=== PATIENT | female | born 1950 | race Caucasian/White ===

== ENCOUNTER 2022-09-03 10:31 | Inpatient (IN) | payer OTHER, MEDICAID ==
[~2022-09-03] VITALS: Ht 160 cm; Wt 112.5 kg
[2022-09-03 10:31] VITALS: BP_SYST 138
[2022-09-03 11:37] LABS: BASOPHILS # (AUTO) 0.1 K/uL (0.0-0.2); BASOPHILS % (AUTO) 0.6 % (0.0-2.0); EOSINOPHILS # (AUTO) 0.3 K/uL (0.0-0.4); EOSINOPHILS % (AUTO) 1.8 % (0.0-4.0); HEMATOCRIT 40.4 % (36-48); HEMOGLOBIN 13.6 g/dL (12.0-16.0); LYMPHOCYTES # (AUTO) 2.6 K/uL (1.0-5.5); LYMPHOCYTES % (AUTO) 15.2 % (20.5-51.5); MEAN CORPUSCULAR HEMOGLOBIN 30 pg (27-31); MEAN CORPUSCULAR HGB CONC 34 % (32-36); MEAN CORPUSCULAR VOLUME 89 fL (79.0-98.0); MONOCYTES # (AUTO) 0.9 K/uL (0.0-1.0); MONOCYTES % (AUTO) 5.5 % (1.7-9.3); NEUTROPHILS % (AUTO) 76.9 % (40.0-70.0); PLATELET COUNT (AUTO) 344 K/uL (130-430); RED BLOOD CELL COUNT(AUTO) 4.54 MIL/uL (4.2-6.2); RED CELL DISTRIBUTION WIDTH 12.8 % (9.0-15.0); WHITE BLOOD COUNT (AUTO) 16.9 K/uL (4.8-10.8)
[2022-09-03 11:38] LABS: ANION GAP 6 (5-15); CALCIUM 9.2 mg/dL (8.4-11.0); CHLORIDE 102 mmol/L (98-107); CREATININE 1.25 mg/dL (0.55-1.30); GLUCOSE 172 mg/dL (70-99); POTASSIUM 4.2 mmol/L (3.5-5.1); UREA NITROGEN, BLOOD 23 mg/dL (8-21)
[2022-09-03 11:44] LABS: ALANINE AMINOTRANSFERASE 32 U/L (12-78); ALBUMIN 3.4 g/dL (3.4-4.8); ASPARTATE AMINOTRANSFERASE 26 U/L (10-37); TOTAL BILIRUBIN 0.4 mg/dL (0.0-1.0)
[2022-09-03 13:42] LABS: BILIRUBIN,URINE NEGATIVE (NEGATIVE); BLOOD, URINE NEGATIVE (NEGATIVE); CLARITY/URINE CLEAR (CLEAR); COLOR,URINE YELLOW (YELLOW); GLUCOSE,URINE NEGATIVE (NEGATIVE); KETONES,URINE TRACE (NEGATIVE); LEUKOCYTE ESTERASE ,URINE TRACE (NEGATIVE); NITRITE, URINE NEGATIVE (NEGATIVE); PH,URINE 5.5 (5.0-8.0); PROTEIN URINE NEGATIVE (NEGATIVE); UROBILINOGEN,URINE 0.2 (0.2-1.0)
[2022-09-03 14:07] LABS: BACTERIA,URINE RARE /HPF (None Seen); MUCUS,URINE 1+ /LPF (None Seen); RBC,URINE 0-3 /HPF (0-3); WBC,URINE 0-3 /HPF (0-3)
[2022-09-03] MEDS ORDERED: NACL 0.9% 1,000 ML IV ONE (14:45)
[2022-09-03] MEDS ORDERED: CEFEPIME 1 GM in D5W 50 ML IV ONE (14:45)
[2022-09-03] MEDS ORDERED: NITROGLYCERIN 0.4 MG TAB.SUBL SL PRN (15:15)
[2022-09-03 16:40] VITALS: BP_SYST 157
[2022-09-03 18:23] VITALS: BP_SYST 139
[2022-09-03] MEDS ORDERED: ACETAMINOPHEN 325 MG TABLET PO PRN (19:45)
[2022-09-03 20:00] VITALS: BP_SYST 135
[2022-09-03] MEDS: ENOXAPARIN SODIUM 40 MG/0.4 ML SYRINGE SUBCUT SCH (21:13)
[2022-09-03] MEDS: CEFEPIME 1 GM in D5W 50 ML IV SCH (21:14)
[2022-09-03] MEDS ORDERED: TRAZ150T77 PO (23:21)
[2022-09-03] MEDS ORDERED: LOSA25TA3 PO (23:21)
[2022-09-03] MEDS ORDERED: QUET50TA PO (23:29)
[2022-09-03] MEDS ORDERED: LAM25 PO (23:29)
[2022-09-03] MEDS ORDERED: SPIR50TA PO (23:29)
[2022-09-03] MEDS ORDERED: LIP40 PO (23:29)
[2022-09-03] MEDS ORDERED: PRO20 PO (23:29)
[2022-09-03 23:45] VITALS: BP_SYST 102
[2022-09-03] MEDS: LOSARTAN POTASSIUM 25 MG TABLET PO SCH (23:45)
[2022-09-04 06:00] VITALS: BP_SYST 100
[2022-09-04 07:19] LABS: BASOPHILS # (AUTO) 0.1 K/uL (0.0-0.2); BASOPHILS % (AUTO) 0.6 % (0.0-2.0); EOSINOPHILS # (AUTO) 0.4 K/uL (0.0-0.4); EOSINOPHILS % (AUTO) 3.4 % (0.0-4.0); HEMATOCRIT 39.8 % (36-48); HEMOGLOBIN 13.6 g/dL (12.0-16.0); LYMPHOCYTES # (AUTO) 2.1 K/uL (1.0-5.5); LYMPHOCYTES % (AUTO) 17.8 % (20.5-51.5); MEAN CORPUSCULAR HEMOGLOBIN 30 pg (27-31); MEAN CORPUSCULAR HGB CONC 34 % (32-36); MEAN CORPUSCULAR VOLUME 88 fL (79.0-98.0); MONOCYTES # (AUTO) 0.6 K/uL (0.0-1.0); MONOCYTES % (AUTO) 4.6 % (1.7-9.3); NEUTROPHILS # (AUTO) 8.8 K/uL (1.8-7.7); NEUTROPHILS % (AUTO) 73.6 % (40.0-70.0); PLATELET COUNT (AUTO) 285 K/uL (130-430); RED BLOOD CELL COUNT(AUTO) 4.54 MIL/uL (4.2-6.2); RED CELL DISTRIBUTION WIDTH 12.6 % (9.0-15.0)
[2022-09-04 07:56] LABS: ANION GAP 6 (5-15); CALCIUM 9.1 mg/dL (8.4-11.0); CHLORIDE 101 mmol/L (98-107); CREATININE 0.98 mg/dL (0.55-1.30); FREE T4 (FREE THYROXINE) 1.3 ng/dl (0.8-1.5); GLUCOSE 187 mg/dL (70-99); POTASSIUM 3.9 mmol/L (3.5-5.1); THYROID STIMULATING HORMONE 1.26 uIu/mL (0.36-3.74); UREA NITROGEN, BLOOD 22 mg/dL (8-21)
[2022-09-04 08:00] VITALS: BP_SYST 123
[2022-09-04] MEDS: ATORVASTATIN 20 MG TABLET PO SCH (08:38)
[2022-09-04] MEDS: ASPIRIN 81 MG TAB.CHEW PO SCH (08:38)
[2022-09-04] MEDS: SPIRONOLACTONE 50 MG TABLET (ALDACTONE) PO SCH (08:39)
[2022-09-04] MEDS: FLUoxetine HCL 20 MG CAPSULE (PROzac) PO SCH (08:40)
[2022-09-04] MEDS: LOSARTAN POTASSIUM 25 MG TABLET PO SCH ×2 (08:41→20:23)
[2022-09-04] MEDS: CEFEPIME 1 GM in D5W 50 ML IV SCH ×2 (08:46→21:00)
[2022-09-04 20:00] VITALS: BP_SYST 146
[2022-09-04] MEDS ORDERED: LamoTRIgine 25 MG TABLET PO SCH (21:00)
[2022-09-04] MEDS ORDERED: traZODone HCL 50 MG TABLET (DESYREL) PO SCH (21:00)
[2022-09-04] MEDS ORDERED: QUEtiapine FUMARATE 25 MG TABLET PO SCH (21:00)
[2022-09-05 00:12] VITALS: BP_SYST 136
[2022-09-05] MEDS: ENOXAPARIN SODIUM 40 MG/0.4 ML SYRINGE SUBCUT SCH (01:51)
[2022-09-05 08:00] VITALS: BP_SYST 139
[2022-09-05] MEDS: ASPIRIN 81 MG TAB.CHEW PO SCH (08:44)
[2022-09-05] MEDS: SPIRONOLACTONE 50 MG TABLET (ALDACTONE) PO SCH ×2 (08:44→08:49)
[2022-09-05] MEDS: FLUoxetine HCL 20 MG CAPSULE (PROzac) PO SCH (08:44)
[2022-09-05] MEDS: LOSARTAN POTASSIUM 25 MG TABLET PO SCH (08:45)
[2022-09-05] MEDS: ATORVASTATIN 20 MG TABLET PO SCH (08:45)
[2022-09-05] MEDS: CEFEPIME 1 GM in D5W 50 ML IV SCH (08:46)
[2022-09-05 11:01] VITALS: BP_SYST 129
[2022-09-05] MEDS ORDERED: CEPH250C PO (11:38)
== END 2022-09-05 12:35 | DRG 690 ==
LOC: SED 10:31 → SMU 15:06
PROVIDERS: ADMIT Family Medicine; ATTEND Family Medicine
DX: N39.0 Urinary tract infection, site not specified (principal); E87.20 Acidosis, unspecified; M17.0 Bilateral primary osteoarthritis of knee; I10 Essential (primary) hypertension; Z20.822 Contact with and (suspected) exposure to COVID-19; E11.9 Type 2 diabetes mellitus without complications
CPT/HCPCS: 36415; 71045; 80048; 80053; 81000; 83605; 83735; 84439; 84443; 85025; 87040; 99285; J0692; J1650; J7060